=== PATIENT | female | born 1965 | race Hispanic/Latino ===

== ENCOUNTER 2020-06-09 13:21 | Emergency (ER) | payer OTHER, SELFPAY ==
--- NOTE | 2020-06-09 18:28 | EDPHYS ---
Physician Documentation [facility] Name: Nela Plunkett Age: 55 yrs Sex: Female : 1965 Arrival Date: 06/09/2020 Time: 13:24 Bed 25 Private MD: ED Physician Dann Doss HPI: 06/09 18:13 This 55 yrs old Female presents to ER via Wheelchair with complaints of Fall sachi Injury. 18:13 Details of fall: The patient fell from an upright position. Onset: The symptoms/episode sachi began/occurred just prior to arrival, this morning. Associated injuries: The patient sustained left hamstring. Severity of symptoms: At their worst the symptoms were mild, moderate, in the emergency department the symptoms are unchanged. The patient has not experienced similar symptoms in the past. Historical: - Allergies: 13:32 No Known Allergies; jd3 - Home Meds: 13:32 lisinopril Oral [Active]; unknown diabetes med [Active]; jd3 - PMHx: 13:32 Diabetes - NIDDM; Hypertension; jd3 - PSHx: 13:32 None; jd3 ROS: 18:14 Constitutional: Negative for fever, chills, and weight loss, Eyes: Negative for injury, sachi pain, redness, and discharge, ENT: Negative for injury, pain, and discharge, Neck: Negative for injury, pain, and swelling, Cardiovascular: Negative for chest pain, palpitations, and edema, Respiratory: Negative for shortness of breath, cough, wheezing, and pleuritic chest pain, Abdomen/GI: Negative for abdominal pain, nausea, vomiting, diarrhea, and constipation, Back: Negative for injury and pain, : Negative for injury, bleeding, discharge, and swelling, Skin: Negative for injury, rash, and discoloration, Neuro: Negative for headache, weakness, numbness, tingling, and seizure, Psych: Negative for depression, anxiety, suicide ideation, homicidal ideation, and hallucinations, Allergy/Immunology: Negative for hives, rash, and allergies, Endocrine: Negative for neck swelling, polydipsia, polyuria, polyphagia, and marked weight changes, Hematologic/Lymphatic: Negative for swollen nodes, abnormal bleeding, and unusual bruising. 18:14 MS/extremity: Positive for decreased range of motion, pain, tenderness, of the left hamstring. Exam: 18:14 Constitutional: This is a well developed, well nourished patient who is awake, alert, sachi and in no acute distress. Head/Face: Normocephalic, atraumatic. Eyes: Pupils equal round and reactive to light, extra-ocular motions intact. Lids and lashes normal. Conjunctiva and sclera are non-icteric and not injected. Cornea within normal limits. Periorbital areas with no swelling, redness, or edema. ENT: Nares patent. No nasal discharge, no septal abnormalities noted. Tympanic membranes are normal and external auditory canals are clear. Oropharynx with no redness, swelling, or masses, exudates, or evidence of obstruction, uvula midline. Mucous membranes moist. Neck: Trachea midline, no thyromegaly or masses palpated, and no cervical lymphadenopathy. Supple, full range of motion without nuchal rigidity, or vertebral point tenderness. No Meningismus. Chest/axilla: Normal chest wall appearance and motion. Nontender with no deformity. No lesions are appreciated. Cardiovascular: Regular rate and rhythm with a normal S1 and S2. No gallops, murmurs, or rubs. Normal PMI, no JVD. No pulse deficits. Respiratory: Lungs have equal breath sounds bilaterally, clear to auscultation and percussion. No rales, rhonchi or wheezes noted. No increased work of breathing, no retractions or nasal flaring. Abdomen/GI: Soft, non-tender, with normal bowel sounds. No distension or tympany. No guarding or rebound. No evidence of tenderness throughout. Back: No spinal tenderness. No costovertebral tenderness. Full range of motion. Skin: Warm, dry with normal turgor. Normal color with no rashes, no lesions, and no evidence of cellulitis. Neuro: Awake and alert, GCS 15, oriented to person, place, time, and situation. Cranial nerves II-XII grossly intact. Motor strength 5/5 in all extremities. Sensory grossly intact. Cerebellar exam normal. Normal gait. Psych: Awake, alert, with orientation to person, place and time. Behavior, mood, and affect are within normal limits. 18:14 Musculoskeletal/extremity: ROM: limited active range of motion, limited passive range of motion, limited active range of motion due to pain, limited passive range of motion due to pain, Circulation is intact in all extremities. Sensation intact. Compartment Syndrome exam of affected extremity: is normal. Joints: All joints appear normal with full range of motion. Weight bearing: able to fully bear weight, DVT Exam: no swelling, negative Homans' sign noted on exam, no appreciated bluish discoloration, no erythema, no increased warmth, pain, tenderness. Vital Signs: 13:30 BP 121 / 58; Pulse 75; Resp 17 S; Temp 98.4(TE); Pulse Ox 100% on R/A; Weight 80.74 kg jd3 (R); Height 5 ft. 4 in. (162.56 cm) (R); Pain 10/10; 13:30 Body Mass Index 30.55 (80.74 kg, 162.56 cm) jd3 MDM: 17:55 Patient medically screened. [facility] 18:26 Differential diagnosis: closed fracture, contusion, tendonitis. Differential diagnosis: sachi contusion, sprain, strain. Data reviewed: vital signs, nurses notes, radiologic studies, plain films. Data interpreted: night monitor: rate is 75 beats/min, rhythm is regular, Pulse oximetry: on room air is 100 %. Test interpretation: by ED physician or midlevel provider: plain radiologic studies. Counseling: I had a detailed discussion with the patient and/or guardian regarding: the historical points, exam findings, and any diagnostic results supporting the discharge/admit diagnosis, lab results, radiology results. 06/09 18:12 Order name: Femur Left XRAY [facility] 06/09 18:12 Order name: Alec Wrap; Complete Time: 19:30 [facility] 06/09 18:12 Order name: Crutches; Complete Time: 19:30 [facility] Administered Medications: 18:38 Drug: [place] 10 mg-325 mg 1 tabs Route: PO; iw 18:38 Drug: Ondansetron (Zofran) 4 mg Route: PO; iw 18:39 Drug: Motrin 600 mg Route: PO; Disposition: 06/09/20 18:27 Discharged to Home. Impression: Fall (on)(from) incline, Pain in left leg - left hamstring strain/tear. - Condition is Stable. - Discharge Instructions: Musculoskeletal Pain, Cryotherapy, [id number], Cryotherapy. - Prescriptions for Ibuprofen 600 mg Oral Tablet - take 1 tablet by ORAL route every 8 hours As needed take with food; 21 tablet. Tylenol- Codeine #3 300-30 mg Oral Tablet - take 2 tablets by ORAL route every 6 hours As needed; 20 tablet. - Medication Reconciliation Form, Thank You Letter, Antibiotic Education, Prescription Opioid Use form. - Follow up: Private Physician; When: 2 - 3 days; Reason: Recheck today's complaints, Re-evaluation by your physician. Follow up: Poli Ramirez; When: 2 - 3 days; Reason: Recheck today's complaints, Re-evaluation by your physician. - Problem is new. - Symptoms have improved. Signatures: Dispatcher [employer] EDMA Dann Doss MD MD cha Williams, Irene RN RN iw Juan Lo RN RN jd3 Corrections: (The following items were deleted from the chart) 19:53 18:27 06/09/2020 18:27 Discharged to Home. Impression: Fall (on)(from) incline; Pain in iw left leg - left hamstring strain/tear. Condition is Stable. Discharge Instructions: Musculoskeletal Pain, Cryotherapy, [id number], Cryotherapy. Prescriptions for Ibuprofen 600 mg Oral Tablet - take 1 tablet by ORAL route every 8 hours As needed take with food; 21 tablet, Tylenol-Codeine #3 300-30 mg Oral Tablet - take 2 tablet by ORAL route every 6 hours As needed; 30 tablet. and Forms are Medication Reconciliation Form, Thank You Letter, Antibiotic Education, Prescription Opioid Use. Follow up: Private Physician; When: 2 - 3 days; Reason: Recheck today's complaints, Re-evaluation by your physician. Follow up: Poli Ramirez; When: 2 - 3 days; Reason: Recheck today's complaints, Re-evaluation by your physician. Problem is new. Symptoms have improved. sachi
--- NOTE | 2020-06-09 18:28 | ER ---
Nurse's Notes [facility] Name: Nela Plunkett Age: 55 yrs Sex: Female : 1965 Arrival Date: 06/09/2020 Time: 13:24 Bed 25 Private MD: Diagnosis: Fall (on)(from) incline;Pain in left leg-left hamstring strain/tear Presentation: 06/09 13:30 Chief complaint: Patient states: "fall with injury to the left leg.". Coronavirus jd3 screen: At this time, the client does not indicate any symptoms associated with coronavirus-19. Ebola Screen: Patient negative for fever greater than or equal to 101.5 degrees Fahrenheit, and additional compatible Ebola Virus Disease symptoms. Initial Sepsis Screen: Does the patient meet any 2 criteria? No. Patient's initial sepsis screen is negative. Does the patient have a suspected source of infection? No. Patient's initial sepsis screen is negative. Risk Assessment: Do you want to hurt yourself or someone else? Patient reports no desire to harm self or others. Onset of symptoms was June 09, 2020. 13:30 Method Of Arrival: Wheelchair jd3 13:30 Acuity: DARSHAN 3 jd3 Historical: - Allergies: 13:32 No Known Allergies; jd3 - Home Meds: 13:32 lisinopril Oral [Active]; unknown diabetes med [Active]; jd3 - PMHx: 13:32 Diabetes - NIDDM; Hypertension; jd3 - PSHx: 13:32 None; jd3 Vital Signs: 13:30 BP 121 / 58; Pulse 75; Resp 17 S; Temp 98.4(TE); Pulse Ox 100% on R/A; Weight 80.74 kg jd3 (R); Height 5 ft. 4 in. (162.56 cm) (R); Pain 10/10; 13:30 Body Mass Index 30.55 (80.74 kg, 162.56 cm) jd3 ED Course: 13:24 Patient arrived in ED. rg4 13:30 Triage completed. jd3 13:31 Arm band placed on. jd3 17:54 Pamela Valle RN is Primary Nurse. iw 17:54 Dann Doss MD is Attending Physician. sachi 18:27 Poli Ramirez MD is Referral Physician. sachi 18:29 Femur Left XRAY In Process Unspecified. EDMS Administered Medications: 18:38 Drug: [facility] 10 mg-325 mg 1 tabs Route: PO; iw 18:38 Drug: Ondansetron (Zofran) 4 mg Route: PO; iw 18:39 Drug: Motrin 600 mg Route: PO; iw Outcome: 18:27 Discharge ordered by . sachi 19:53 Patient left the ED. iw Signatures: Dispatcher [employer] EDMS Dann Doss MD MD cha Williams, Irene, RN RN Pearl Meyer rg4 Juan Lo RN RN jd3
[2020-06-09] MEDS ORDERED: IBUPROFEN 200 MG TAB PO ONE (18:44)
[2020-06-09] MEDS ORDERED: HYDROCODONE/APAP 10/325 TAB ONE (18:44)
[2020-06-09] MEDS ORDERED: ONDANSETRON 4 MG (ODT) TAB ONE (18:44)
[2020-06-09 20:00] VITALS: BP 121/58; TEMP 98.4; O2SAT 100
--- NOTE | 2020-06-10 07:18 | RAD REPORT ---
EXAM DESCRIPTION: RAD - Femur Left - 06/09/2020 10:36 pm CLINICAL HISTORY: Left leg pain FINDINGS: . No fracture is seen. No bony lesion is displayed.
== END 2020-06-09 19:53 | disposition home or self-care (01) ==
LOC: ER 13:21
DX: S76.312A Strain of muscle, fascia and tendon of the posterior muscle group at thigh level, left thigh, initial encounter (principal); W19.XXXA Unspecified fall, initial encounter; E11.9 Type 2 diabetes mellitus without complications; I10 Essential (primary) hypertension
CPT/HCPCS: 99283